=== PATIENT | male | born 1985 | race African-American/Black ===

== ENCOUNTER 2018-07-05 16:51 | Emergency (ER) | payer MEDICAID, SELFPAY ==
[~2018-07-05] VITALS: Ht 188 cm; Wt 81.6 kg
--- NOTE | 2018-07-05 17:00 | NUR ---
ED Nurse Note: pt walked in to ER with mom c/o sore throat 4/10 and coughing for 3 weeks. pt aao x4 and skin clean and intact.
[2018-07-05 17:02] VITALS: BP 142/67
[2018-07-05] MEDS ORDERED: Lidocaine 1% MPF 10mg/ml 5ml INJ ONE (17:15)
--- NOTE | 2018-07-05 17:53 | Emergency Room Report ---
History of Present Illness General Chief Complaint: Flu Like Symptoms Source: Patient (Adia Solorio) Present Illness HPI 33-year-old male with significant past medical history of tobacco abuse here complaining of 3 weeks of cough with green phlegm, and congestion. Patient is here with his mom and his INTERFERING with his diagnostic and treatment process as she keeps talking for the patient. Patient reports body ache times few days in addition to his old symptoms of cough and chills. Denies sore throat, chest pain, palpitation, shortness of breath, history of asthma.. He also complains of soreness in his nostrils. Denies abdominal pain, nausea vomiting, recent travel, drug use. (Adia Solorio) Allergies: Coded Allergies: No Known Allergies (Unverified , 07/05/18) Patient History Past Medical History: see triage record Past Surgical History: unable to obtain Pertinent Family History: none Social History: Reports: smoking - tobacco and marijuana Immunizations: UTD Reviewed Nursing Documentation: PMH: Agreed; PSxH: Agreed (Adia Solorio) Nursing Documentation-PMH Past Medical History: No Stated History (Adia Solorio) Review of Systems All Other Systems: negative except mentioned in HPI (Adia Solorio) Physical Exam Vital Signs Date Time Temp Pulse Resp B/P (MAP) Pulse Ox O2 Delivery O2 Flow Rate FiO2 07/05/18 16:55 98.4 78 16 142/67 97 Room Air Sp02 EP Interpretation: reviewed, normal General Appearance: normal inspection, well appearing, no apparent distress, alert Head: normocephalic, atraumatic Eyes: bilateral eye normal inspection, bilateral eye PERRL ENT: hearing grossly normal, normal pharynx, no angioedema, normal voice, uvula midline, other - Erythema of nasal septum Neck: normal inspection, full range of motion, supple Respiratory: no rhonchi, no respiratory distress, wheezing - diffuse, other - no crackles Cardiovascular #1: normal inspection, normal peripheral pulses, regular rate, rhythm, no edema, no murmur Gastrointestinal: normal inspection, normal bowel sounds, non tender, soft Rectal: deferred Genitourinary: no CVA tenderness Neurologic: normal inspection, alert, oriented x3 Psychiatric: normal inspection, judgement/insight normal Skin: normal inspection, normal color, no rash, warm/dry, palpation normal, well hydrated Lymphatic: normal inspection, no adenopathy (Adia Solorio) Medical Decision Making PA Attestation All diagnosis and treatment plans were reviewed and discussed with supervising physician Dr. Perez (Adia Solorio) Diagnostic Impression: Primary Impression: Bronchitis Additional Impression: Nasal abrasion ER Course 33-year-old male with significant past medical history of tobacco abuse here complaining of 3 weeks of cough with green phlegm, and congestion. Patient is here with his mom and his INTERFERING with his diagnostic and treatment process as she keeps talking for the patient. Patient reports body ache times few days in addition to his old symptoms of cough and chills. Denies sore throat, chest pain, palpitation, shortness of breath, history of asthma.. He also complains of soreness in his nostrils. Denies abdominal pain, nausea vomiting, recent travel, drug use. Ddx considered but are not limited to chronic bronchitis, pneumonia, Staphylococcus infection of the nasal mucosa, nasal abrasions Vital signs: are WNL, pt. is afebrile H&PE are most consistent with chronic bronchitis, and nasal abrasion ORDERS: chest x-ray, Rocephin 1 g, azithromycin,phenergen, albuterol inhaler, tamiflu ED INTERVENTIONS: None required at this time. DISCHARGE: At this time pt. is stable for d/c to home. Will provide printed patient care instructions, and any necessary prescriptions. Care plan and follow up instructions have been discussed with the patient prior to discharge. use Vaseline in the nasal septum, take medication as directed, avoid smoking, Tamiflu will help U with your body ache (Adia Solorio) Chest X-Ray Diagnostic Results Chest X-Ray Diagnostic Results : Chest X-Ray Ordered: Yes # of Views/Limited/Complete: 2 View Indication: Other - cough EP Interpretation: Yes LIDA Xray: Interpretation reviewed, by supervising MD Interpretation: no consolidation, no effusion, no pneumothorax, no acute cardiopulmonary disease Impression: No acute disease Electronically Signed by: adia hong PA-C (Adia Solorio) Chest X-Ray Diagnostic Results : Electronically Signed by: P A documentation of Xray reviewed by me and is accurate, Julio Cesar Perez MD (Julio Cesar Perez MD) Last Vital Signs Date Time Temp Pulse Resp B/P (MAP) Pulse Ox O2 Delivery O2 Flow Rate FiO2 07/05/18 17:02 78 16 Room Air 07/05/18 17:02 98.4 142/67 97 (Adia Solorio) Disposition: HOME, SELF-CARE Condition: Stable Scripts Oseltamivir Phosphate (Tamiflu) 75 Mg Capsule 75 MG ORAL TWICE A DAY for 5 Days, #10 CAP Prov: Adia Solorio 07/05/18 Albuterol Sulfate (VENTOLIN HFA) 18 Gm Hfa.aer.ad 2 PUFFS INH EVERY 6 HOURS, #18 GM 0 Refills Prov: Adia Solorio 07/05/18 Promethazine Hcl (PROMETHAZINE HCL*) 6.25 Mg/5 Ml Syrup 5 ML ORAL Q6H, #120 ML 0 Refills Prov: Adia Solorio 07/05/18 Azithromycin* (ZITHROMAX*) 250 Mg Tablet 250 MG ORAL DAILY, #6 TAB 0 Refills Take two tables once daily for 1 day, then one tablet once daily for 4 days. Prov: Adia Solorio 07/05/18 Patient Instructions: Acute Bronchitis, [id number] Additional Instructions: Avoid smoking, take medication as directed, follow-up with her primary care provider if worsening symptoms Adia Solorio Jul 05, 2018 17:53 Julio Cesar Perez MD Jul 06, 2018 03:01
[2018-07-05] MEDS ORDERED: PROMETHAZI6.25 MG/1 ORAL (17:55)
[2018-07-05] MEDS ORDERED: VENTOLIN HFA18 GM INH (17:55)
[2018-07-05] MEDS ORDERED: ZITHROMAX250 MG ORAL (17:55)
[2018-07-05] MEDS ORDERED: TAMIFLU75 MG ORAL (17:55)
[2018-07-05 18:02] VITALS: BP 125/71
--- NOTE | 2018-07-05 18:04 | NUR ---
ER DISCHARGE NOTE: Patient is cleared to be discharged per ERMD, pt is aox4, on room air, with stable vital signs. pt was given dc and prescription instructions, pt was able to verbalize understanding, pt id band removed. pt is able to ambulate with steady gait. pt took all belongings.
--- NOTE | 2018-07-06 12:07 | Diagnostic Imaging Report ---
Indication: Cough Comparison: None 2 views of the chest obtained. Findings: Cardiomediastinal silhouette and pulmonary vascularity are within normal limits for age. The diaphragmatic contour is smooth and costophrenic angles are sharp. No pleural effusions are identified. The bones are unremarkable. Impression: No acute disease
== END 2018-07-05 18:00 | disposition home or self-care (01) ==
LOC: EMR 17:27
DX: J40 Bronchitis, not specified as acute or chronic (principal); S00.31XA Abrasion of nose, initial encounter; X58.XXXA Exposure to other specified factors, initial encounter; Y92.9 Unspecified place or not applicable
CPT/HCPCS: 71046; 96372; 96374; 99284; J0696

== ENCOUNTER 2018-08-24 16:26 | Emergency (ER) | payer MEDICAID ==
[~2018-08-24] VITALS: Ht 188 cm; Wt 79.4 kg
[~2018-08-24 16:26] MED LIST: PROMETHAZI6.25 MG/1 ORAL; TAMIFLU75 MG ORAL; VENTOLIN HFA18 GM INH; ZITHROMAX250 MG ORAL
[2018-08-24 16:31] VITALS: BP 128/68
[2018-08-24] MEDS ORDERED: NKM (16:33)
--- NOTE | 2018-08-24 16:40 | NUR ---
ED Nurse Note: Patient walked into ED due to sore on nose for 3 weeks. patient reports he got treated for flu like symptoms and he is feeling better, but sore on the nose is not going away so he's concerned. pt c/o laceration on right 1st digit and left 3rd digit finger, he was washing dishes yesterday morning and was cut by a broken glassware
--- NOTE | 2018-08-24 17:07 | Emergency Room Report ---
History of Present Illness General Chief Complaint: Laceration Source: Patient Present Illness HPI 33-year-old male presents to the emergency department complaining of a 5 out of 10 in severity painful wound inside of his nose it is painful and has been present for 3 weeks. Also c/o lacerations to the right thumb as well as the left middle finger times one day. pt. reports to digital manipulation early in the course of nasal sore. he denies recent digital manipulation. reports after taking abx last week his symptoms improved greatly however did not resolve entirely. Pt. requesting further treatment for nasal wound. reports the laceration on his hand occurred yesterday morning. Denies nasal d/c or bleeding. Denies fevers or chills. He states his tetanus is not up-to-date however he declines updating today. Patient reports some persistent bleeding in the right thumb otherwise denies pain at the site of the lacerations. Denies taking blood thinning medications. no aggravating or relieving factors at this time. Allergies: Coded Allergies: No Known Allergies (Unverified , 07/05/18) Patient History Past Medical History: see triage record Past Surgical History: none Pertinent Family History: none Reviewed Nursing Documentation: PMH: Agreed; PSxH: Agreed Nursing Documentation-PMH Past Medical History: No Stated History Review of Systems All Other Systems: negative except mentioned in HPI Physical Exam Vital Signs Date Time Temp Pulse Resp B/P (MAP) Pulse Ox O2 Delivery O2 Flow Rate FiO2 08/24/18 16:31 98.6 78 18 128/68 99 Room Air Sp02 EP Interpretation: reviewed, normal General Appearance: no apparent distress, alert, GCS 15, non-toxic Head: normocephalic, atraumatic Eyes: bilateral eye normal inspection, bilateral eye PERRL ENT: hearing grossly normal, normal voice, other - pustules notes om the septal wall of the right nare, there is also one in the left nare just in front of the turbinates. no external lesions or rashes. no eye involvement Neck: full range of motion Respiratory: chest non-tender, lungs clear, normal breath sounds, speaking full sentences Cardiovascular #1: regular rate, rhythm Musculoskeletal: gait/station normal, normal range of motion, non-tender Neurologic: alert, oriented x3, responsive, motor strength/tone normal, sensory intact, speech normal, grossly normal Psychiatric: judgement/insight normal Skin: normal color, no rash, warm/dry, well hydrated, laceration - 2 lacerations: 1cm flap laceration to the dorsum of the left thumb, superficial, no tendon involvement. 0.5 cm healed laceration to the left middle finger. Medical Decision Making PA Attestation Dr. dixon is my supervising Physician whom patient management has been discussed with. Diagnostic Impression: Primary Impression: Nasal abrasion Qualified Codes: S00.31XA - Abrasion of nose, initial encounter Additional Impression: Laceration ER Course 33-year-old male presents to the emergency department complaining of a 5 out of 10 in severity painful wound inside of his nose it is painful and has been present for 3 weeks. Also c/o lacerations to the right thumb as well as the left middle finger times one day. pt. reports to digital manipulation early in the course of nasal sore. he denies recent digital manipulation. reports after taking abx last week his symptoms improved greatly however did not resolve entirely. Pt. requesting further treatment for nasal wound. reports the laceration on his hand occurred yesterday morning. Denies nasal d/c or bleeding. Denies fevers or chills. He states his tetanus is not up-to-date however he declines updating today. Patient reports some persistent bleeding in the right thumb otherwise denies pain at the site of the lacerations. Denies taking blood thinning medications. no aggravating or relieving factors at this time. Ddx considered but are not limited to laceration, tendon injury, cellulitis, amputation, MRSA, Shingles, Viral vessicles, abrasion secondary to digital manipulation Vital signs: are WNL, pt. is afebrile H&PE are most consistent with: Right thumb superficial flap laceration approx 1 cm in length, some bleeding. no obvious tendon involvement. ORDERS: none required at this time, the diagnosis is clinical ED INTERVENTIONS: Wound to heal by secondary intent as this wound is greater than 24 hours old and benefits of wound closure do not outweigh the risk of rylee infection with a delayed closure. Patient will be discharged on oral antibiotics and close outpatient follow-up. - The wound was copiously irrigated with normal saline, and explored for foreign body for which no FB was found. - Pressure was applied to the right thumb laceration to achieve hemostasis. - sterile dressing is applied by the RN Discussed with patient: That we make every effort to approximate the laceration as best as we can so that scarring will be as cosmetically pleasing as possible with our limited cosmetic skill set in the Emergency dept. Regardless of our best efforts there will be scarring after laceration repair. The extent of scarring is unknown at this time. DISCHARGE: At this time pt. is stable for d/c to home. Will provide printed patient care instructions, and any necessary prescriptions. Care plan and follow up instructions have been discussed with the patient prior to discharge. Last Vital Signs Date Time Temp Pulse Resp B/P (MAP) Pulse Ox O2 Delivery O2 Flow Rate FiO2 08/24/18 16:31 98.6 78 18 128/68 99 Room Air Disposition: HOME, SELF-CARE Condition: Stable Scripts Mupirocin* (MUPIROCIN*) 22 Gm Oint...g. 1 APPLIC NASAL THREE TIMES A DAY, #22 GM Prov: Carley Young 08/24/18 Cephalexin* (KEFLEX*) 500 Mg Capsule 500 MG ORAL EVERY 12 HOURS for 7 Days, #14 CAP 0 Refills Prov: Carley Young 08/24/18 Patient Instructions: Mupirocin nasal ointment, Nonsutured Laceration Care Additional Instructions: Take medications as directed. Follow up with a Primary Care Provider in 3-5 days, even if your symptoms have resolved. --Please review list of primary care clinics, if you do not already have a primary care provider Return sooner to ED if new symptoms occur, or current symptoms become worse. - Please note that this Emergency Department Report was dictated using [employer] pattern folder technology software, occasionally this can lead to erroneous entry secondary to interpretation by the dictation equipment. Carley Young Aug 24, 2018 17:07
[2018-08-24] MEDS ORDERED: MUPIROCIN22 GM NASAL (17:17)
[2018-08-24] MEDS ORDERED: CEPHALEXIN500 MG ORAL (17:17)
[2018-08-24 17:24] VITALS: BP 128/68
--- NOTE | 2018-08-24 17:25 | NUR ---
ER DISCHARGE NOTE: Patient is cleared to be discharged per VASILE CHAN pressure dressing applied to achieve hemostasis , pt is aox4, on room air, with stable vital signs. pt was given dc and prescription instructions, pt was able to verbalize understanding, patient verbalized understanding of following up with his primary doctor or come back to ED for worsening symptoms, like continuous bleeding from the right thumb. pt id band removed without complications. pt is able to ambulate with steady gait. pt took all belongings.
== END 2018-08-24 17:25 | disposition home or self-care (01) ==
LOC: EMR 17:05
DX: S00.31XA Abrasion of nose, initial encounter (principal); S61.012A Laceration without foreign body of left thumb without damage to nail, initial encounter; X58.XXXA Exposure to other specified factors, initial encounter; Y92.9 Unspecified place or not applicable
CPT/HCPCS: 99283